=== PATIENT | female | born 1985 | race Caucasian/White ===

== ENCOUNTER 2017-01-01 13:14 | Emergency (ER) | payer OTHER, MEDICARE ==
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
[~2017-01-01 13:14] MED LIST: ACETAMINOPHEN325 MG PO; ALBUTEROL MININEB NEB; ALBUTEROL17 GM INH; ALDACTONE25 MG PO; ALPRAZOLAM PO; AMIODARONE; AZOR; BENADRYL25 M1 PO; BENADRYL25 MG; BYSTOLIC PO; CARDIZEM; CARDIZEM CD PO; CHANTIX PO; CLONIDINE HCL0.1 MG; CLONIDINE HCL0.1 MG PO; CLONIDINE PO; COUGH MEDS; FLEXERIL10 MG; FLEXERIL10 MG PO; FORTEO2.4 ML; GUAIFENESIN-CO480 ML; GUAIFENESIN-CO480 ML PO; LASIX PO; LASIX80 MG PO; LEVAQUIN PO; LEVAQUIN750 MG PO; LEVOXYL0.137 MG; LEVOXYL112 MC1 PO; MEDROL4 MG/DOSE-; MIRENA; MORPHINE SULFAT30 M3 PO; OXYCODONE HCL30 MG PO; PERCOCET 10/3251 TAB; PERCOCET PO; PHENERGAN25 M1 PO; PROAIR; PROAIR HFA8.5 GM; PROAIR HFA8.5 GM IH; PULMICORT200 MCG/AE INH; ROBITUSSIN A-C-S1 ML PO; SAVELLA PO; SYMBICORT; SYMBICORT INH; TOPROL XL PO; XANAX2 MG PO; [UNRECOGNIZED DRUG - REMARK]; [UNRECOGNIZED DRUG - REMARK]
[2017-01-01] MEDS ORDERED: SYMBICORT INHALER INH (13:22)
== END 2017-01-01 15:43 | disposition home or self-care (01) ==
LOC: SED 13:14
DX: S80.01XA Contusion of right knee, initial encounter (principal); S50.02XA Contusion of left elbow, initial encounter; F17.210 Nicotine dependence, cigarettes, uncomplicated; Z88.8 Allergy status to other drugs, medicaments and biological substances; Z79.899 Other long term (current) drug therapy; W22.8XXA Striking against or struck by other objects, initial encounter; Y92.89 Other specified places as the place of occurrence of the external cause
CPT/HCPCS: 73080; 73090; 73562; 99284